=== PATIENT | female | born 1990 | race African-American/Black ===

== ENCOUNTER 2022-03-07 13:14 | Emergency (ER) | payer MEDICAID, OTHER ==
[~2022-03-07] VITALS: Ht 175.3 cm; Wt 68.2 kg
[~2022-03-07 13:14] MED LIST: DSS100 PO; FERR325T27 PO; IBUP-2070 PO; PERCT PO; PREN1TAB52 PO
[2022-03-07] MEDS ORDERED: PERTUSS(ACELL),DIPH,TET VAC/PF 0.5 ML SYRINGE IM. ONE (14:15)
[2022-03-07] MEDS ORDERED: DiphenhydrAMINE HCL 50 MG/ML VIAL IM ONE (14:15)
[2022-03-07] MEDS ORDERED: DIPH50CA37 PO (14:26)
[2022-03-07 14:58] VITALS: BP 124/85
== END 2022-03-07 14:59 | disposition home or self-care (01) ==
LOC: EMS 13:14
DX: S50.861A Insect bite (nonvenomous) of right forearm, initial encounter (principal); S60.561A Insect bite (nonvenomous) of right hand, initial encounter; W57.XXXA Bitten or stung by nonvenomous insect and other nonvenomous arthropods, initial encounter; Y93.89 Activity, other specified; Y92.89 Other specified places as the place of occurrence of the external cause; Y99.8 Other external cause status
CPT/HCPCS: 99284; 90715; 90471; 96372; J1200

== ENCOUNTER 2023-01-26 07:14 | Emergency (ER) | payer OTHER ==
[~2023-01-26] VITALS: Ht 175.3 cm; Wt 65.9 kg
[~2023-01-26 07:14] MED LIST changes: +DIPH50CA37 PO; -DSS100 PO; -FERR325T27 PO; -IBUP-2070 PO; -PERCT PO; -PREN1TAB52 PO
[2023-01-26 07:59] LABS: BASOPHILS % (AUTO) 0.5 % (0.0-2.0); HEMATOCRIT 35.8 % (36-46); HEMOGLOBIN 11.8 g/dL (12.0-16.0); LYMPHOCYTES # (AUTO) 1.4 K/uL (1.0-4.8); LYMPHOCYTES % (AUTO) 18.1 % (22.0-44.0); MEAN CORPUSCULAR HEMOGLOBIN 32.5 pg (26.0-34.0); MEAN CORPUSCULAR VOLUME 99 fL (80-100); MONOCYTES # (AUTO) 0.5 K/uL (0.1-1.0); MONOCYTES % (AUTO) 6.3 % (2.0-9.0); NEUTROPHILS # (AUTO) 5.8 K/uL (1.8-7.7); NEUTROPHILS % (AUTO) 74.1 % (40.0-70.0); PLATELET COUNT (AUTO) 247 K/uL (150-450); RED BLOOD CELL COUNT(AUTO) 3.64 MIL/uL (4.00-5.20); RED CELL DISTRIBUTION WIDTH 13.8 % (11.5-14.5)
[2023-01-26] MEDS ORDERED: IBUPROFEN 600 MG TABLET PO ONE (11:45)
[2023-01-26] MEDS ORDERED: ONDANSETRON HCL 4 MG TABLET PO ONE (11:45)
[2023-01-26 12:13] VITALS: BP 138/87
[2023-01-26] MEDS ORDERED: ONDA-104 PO (12:38)
[2023-01-26] MEDS ORDERED: IBUP-1492 PO (12:38)
== END 2023-01-26 13:33 | disposition home or self-care (01) ==
LOC: EMS 07:15
DX: O20.0 Threatened abortion (principal); Z98.890 Other specified postprocedural states; Z3A.01 Less than 8 weeks gestation of pregnancy
CPT/HCPCS: 99284; 76801; 84702; 85025; 86901; 36415; 76817; Q0162

== ENCOUNTER 2023-09-30 16:08 | Emergency (ER) | payer OTHER ==
[~2023-09-30] VITALS: Ht 175.3 cm; Wt 63.6 kg
[~2023-09-30 16:08] MED LIST changes: -DIPH50CA37 PO; +IBUP-1492 PO; +ONDA-104 PO
[2023-09-30 16:31] LABS: HEMATOCRIT 33.3 % (36-46); LYMPHOCYTES # (AUTO) 1.6 K/uL (1.0-4.8); LYMPHOCYTES % (AUTO) 26.2 % (22.0-44.0); MEAN CORPUSCULAR HEMOGLOBIN 31.6 pg (26.0-34.0); MEAN CORPUSCULAR HGB CONC 33.1 G/dL (31.0-37.0); MEAN CORPUSCULAR VOLUME 96 fL (80-100); MONOCYTES # (AUTO) 0.5 K/uL (0.1-1.0); MONOCYTES % (AUTO) 8.1 % (2.0-9.0); NEUTROPHILS # (AUTO) 3.9 K/uL (1.8-7.7); NEUTROPHILS % (AUTO) 63.7 % (40.0-70.0); PLATELET COUNT (AUTO) 285 K/uL (150-450); RED BLOOD CELL COUNT(AUTO) 3.48 MIL/uL (4.00-5.20); RED CELL DISTRIBUTION WIDTH 16.4 % (11.5-14.5); WHITE BLOOD COUNT (AUTO) 6.1 K/uL (4.5-11.0)
[2023-09-30 16:46] LABS: ANION GAP 8 mmol/L (8-16); CALCIUM, TOTAL 8.7 mg/dL (8.8-10.5); CARBON DIOXIDE 26 mmol/L (22-29); CHLORIDE 101 mmol/L (98-107); CREATININE 0.63 mg/dL (0.60-1.30); GLOMERULAR FILTR. RATE CALC > 60 mL/min (>60); GLUCOSE,RANDOM 85 mg/dL (70-110); POTASSIUM 3.7 mmol/L (3.5-5.1); SODIUM SERUM 135 mmol/L (136-145); UREA NITROGEN, BLOOD 10 mg/dL (7-18)
[2023-09-30 17:07] LABS: ALANINE AMINOTRANSFERASE 15 U/L (12-78); ALBUMIN 2.9 g/dL (3.4-5.0); ALKALINE PHOSPHATASE 63 U/L (46-116); ASPARTATE AMINOTRANSFERASE 10 U/L (15-37); BILIRUBIN,TOTAL 0.3 mg/dL (0.1-1.0); HCG,QUANTITATIVE 134745 mIU/mL (0-6); LIPASE 26 U/L (16-77); TOTAL PROTEIN, SERUM 6.7 g/dL (6.4-8.2)
[2023-09-30 17:33] LABS: APPEARANCE,URINE CLEAR (CLEAR); BILIRUBIN,URINE NEGATIVE (NEGATIVE); COLOR,URINE YELLOW (YELLOW); GLUCOSE, URINE (UA) NEGATIVE (NEGATIVE); KETONES,URINE NEGATIVE (NEGATIVE); LEUKOCYTE ESTERASE ,URINE NEGATIVE (NEGATIVE); NITRATE,URINE NEGATIVE (NEGATIVE); OCCULT BLOOD,URINE NEGATIVE (NEGATIVE); PH,URINE 6.5 (5.0-8.0); PROTEIN,URINE TRACE mg/dL (NEGATIVE); SPECIFIC GRAVITIY, URINE 1.029 (1.003-1.030); UROBILINOGEN,URINE <=1.0 mg/dL (<=1.0)
[2023-09-30 19:01] VITALS: BP 127/62; PULSE 72; RESP 18; TEMP 97.3
[2023-09-30] MEDS ORDERED: PNV1TABL77 PO (19:33)
== END 2023-09-30 20:19 | disposition home or self-care (01) ==
LOC: EMS 16:27
DX: O26.891 Other specified pregnancy related conditions, first trimester (principal); Z98.890 Other specified postprocedural states; Z3A.01 Less than 8 weeks gestation of pregnancy
CPT/HCPCS: 76801; 80053; 81003; 83690; 84702; 85025; 99284

== ENCOUNTER 2023-12-04 14:05 | Emergency (ER) | payer OTHER ==
[~2023-12-04] VITALS: Ht 175.3 cm; Wt 63.6 kg
[~2023-12-04 14:05] MED LIST changes: -IBUP-1492 PO; -ONDA-104 PO; +PNV1TABL77 PO
[2023-12-04 14:07] VITALS: TEMP 98.6
[2023-12-04 14:36] LABS: BASOPHILS % (AUTO) 0.6 % (0.0-2.0); EOSINOPHILS % (AUTO) 3.1 % (1.0-6.0); HEMATOCRIT 40.7 % (36-46); HEMOGLOBIN 13.5 g/dL (12.0-16.0); LYMPHOCYTES # (AUTO) 1.2 K/uL (1.0-4.8); LYMPHOCYTES % (AUTO) 12.8 % (22.0-44.0); MEAN CORPUSCULAR HEMOGLOBIN 32.1 pg (26.0-34.0); MEAN CORPUSCULAR HGB CONC 33.1 G/dL (31.0-37.0); MEAN CORPUSCULAR VOLUME 97 fL (80-100); MONOCYTES # (AUTO) 0.9 K/uL (0.1-1.0); MONOCYTES % (AUTO) 10.4 % (2.0-9.0); NEUTROPHILS # (AUTO) 6.6 K/uL (1.8-7.7); NEUTROPHILS % (AUTO) 73.1 % (40.0-70.0); PLATELET COUNT (AUTO) 259 K/uL (150-450); RED CELL DISTRIBUTION WIDTH 13.9 % (11.5-14.5); WHITE BLOOD COUNT (AUTO) 9.1 K/uL (4.5-11.0)
[2023-12-04 14:49] LABS: CALCIUM, TOTAL 9.7 mg/dL (8.8-10.5); CREATININE 1.82 mg/dL (0.60-1.30)
[2023-12-04 15:00] LABS: ALBUMIN 3.9 g/dL (3.4-5.0); BILIRUBIN,TOTAL 0.5 mg/dL (0.1-1.0); TOTAL PROTEIN, SERUM 8.1 g/dL (6.4-8.2)
[2023-12-04 15:19] LABS: APPEARANCE,URINE TURBID (CLEAR); BILIRUBIN,URINE NEGATIVE (NEGATIVE); COLOR,URINE YELLOW (YELLOW); GLUCOSE, URINE (UA) TRACE mg/dL (NEGATIVE); KETONES,URINE NEGATIVE (NEGATIVE); LEUKOCYTE ESTERASE ,URINE NEGATIVE (NEGATIVE); NITRATE,URINE NEGATIVE (NEGATIVE); OCCULT BLOOD,URINE SMALL (NEGATIVE); PROTEIN,URINE 300-600,SEE CONFIRM mg/dL (NEGATIVE); SPECIFIC GRAVITIY, URINE 1.012 (1.003-1.030); UROBILINOGEN,URINE <=1.0 mg/dL (<=1.0)
[2023-12-04 15:29] LABS: SULFOSALICYLIC ACID,URINE 3+ (Negative)
[2023-12-04 15:30] LABS: BACTERIA,URINE Few /HPF (None Seen); SQUAMOUS EPITHELIAL CELL,UR Moderate /LPF (None Seen); WBC,URINE 0-2 /HPF (0-5)
[2023-12-04] MEDS: METOCLOPRAMIDE HCL 5 MG/ML 2 ML VIAL IVP ONE (15:30)
[2023-12-04] MEDS: SODIUM CHLORIDE 0.9% 1,000 ML IV ONE (15:30)
[2023-12-04] MEDS: MORPHINE SULFATE 2 MG/ML SYRINGE IVP ONE (15:40)
[2023-12-04 15:47] LABS: HCG,QUANTITATIVE 6 mIU/mL (0-6); LIPASE 33 U/L (16-77)
[2023-12-04 18:00] VITALS: BP 122/83; PULSE 76; RESP 16
[2023-12-04] MEDS: KETOROLAC TROMETHAMINE 30 MG/ML VIAL IVP ONE (18:04)
== END 2023-12-04 18:37 | disposition home or self-care (01) ==
LOC: EMS 14:06
DX: R19.7 Diarrhea, unspecified (principal); N83.201 Unspecified ovarian cyst, right side; Z98.890 Other specified postprocedural states
CPT/HCPCS: 99285; 96374; 76856; 96375; 96361; 80053; 81001; 83690; 84702; 85025; 36415; J1885; J2765; J2270; J7030; 81002

== ENCOUNTER 2024-02-21 15:59 | Emergency (ER) | payer OTHER ==
[~2024-02-21] VITALS: Ht 175.3 cm; Wt 63.0 kg
[2024-02-21 16:32] VITALS: TEMP 98
[2024-02-21] MEDS: LIDOCAINE/PRILOCAINE 2.5% 30 GM CREAM TP ONE (17:48)
[2024-02-21] MEDS ORDERED: CEPH-558 PO (18:52)
[2024-02-21 19:16] VITALS: BP 122/72; PULSE 79; RESP 20
== END 2024-02-21 19:30 | disposition home or self-care (01) ==
LOC: EMS 16:18
DX: H60.02 Abscess of left external ear (principal); Z98.890 Other specified postprocedural states
CPT/HCPCS: 69020; 99284; Z7502; Z7610